=== PATIENT | male | born 1960 | race Caucasian/White ===

== ENCOUNTER 2023-05-18 12:52 | Emergency (ER) | payer SELFPAY ==
[2023-05-18 13:07] VITALS: BP 160/62; PULSE 75; RESP 18; TEMP 36.9; O2SAT 97
[2023-05-18 13:08] VITALS: BP 160/62; PULSE 75; RESP 18; TEMP 36.9; O2SAT 97
--- NOTE | 2023-05-18 13:19 | ED.LOWEXIN ---
HPI - Extremity Injury (Lower) General Chief Complaint: Extremity Problem,Nontraumatic Stated Complaint: lower extremity injury Time Seen by Provider: 05/18/23 12:59 Source: patient Mode of arrival: ambulatory Limitations: no limitations History of Present Illness HPI Narrative: 62-year-old male presents to [facility] with complaints of erythematous painful rash and mild swelling to his left lower leg since this morning. Patient denies injury to the area. Patient denies fever, body aches, chills, nausea, vomiting, diarrhea, chest pain, shortness of breath. Onset (ago): day(s) (1) Relieving factors: nothing Exacerbating factors: nothing Associated symptoms: swelling Other symptoms: none Related Data Home Medications Medication Instructions Recorded Confirmed esomeprazole magnesium 20 mg 20 mg PO DAILY 05/18/23 05/18/23 capsule,delayed release (Nexium) Allergies Allergy/AdvReac Type Severity Reaction Status Date / Time No Known Allergies Allergy Verified 05/18/23 13:08 Review of Systems Constitutional: Constitutional: Denies chills, Denies fatigue, Denies fever(s) and Denies weakness ENT: Denies dizziness, Denies epistaxis, Denies nasal congestion and Denies sore throat Cardiovascular: Cardiovascular: Denies chest pain and Denies rapid heart rate Respiratory: Respiratory: Denies cough and Denies wheezing Gastrointestinal: Gastrointestinal: Denies diarrhea, Denies nausea and Denies vomiting Musculoskeletal: Musculoskeletal: Reports arthralgias and Reports joint swelling Comments: Mild swelling noted to left lower leg Integumentary/Breasts: Skin/Breast: Reports rash Comments: Erythematous rash to left lower leg Neurologic: Denies dizziness, Denies syncope and Denies headache(s) PMFSH Social History Social History (Updated 05/18/23 @ 13:22 by Vera Cope APRN) Smoking status: Current every day smoker Comments At time of signature, I agree with nursing past medical, surgical, social and family history. There is no relevant family history pertinent to the presenting complaint. Exam Const: General: healthy appearing and no acute distress Nutritional Appearance: well nourished Orientation/consciousness: patient oriented x3 Limitations: no limitations Eyes: Conjunctivae: conjunctivae normal Resp: Effort & Inspection: normal respiratory effort and not labored Auscultation: clear to auscultation bilaterally, no crackles, no rales, no rhonchi and no wheezes Cardio: Rate: regular rate Rhythm: regular rhythm Heart sounds: no murmurs Skin: General skin exam: normal color Wounds: no wounds Other: Erythematous rash noted to anterior medial, lateral aspect of left lower leg. There is no rash noted posterior aspect of left lower leg. There is mild surrounding erythema and swelling noted to left lower leg. Neuro: General: patient oriented x3 Speech: normal speech Gait exam (Neuro): Normal gait present Extrem: Other: 1+ swelling noted to left lower leg. Pulses are within normal limits. There is mild athlete's foot noted to left toes. Cellulitis type rash noted to left lower leg with surrounding erythema noted Psych: Affect: normal affect Attitude: cooperative Course Course Level of Care: Express Care Visit Vital Signs Vital signs: Vital Signs Temperature 36.9 C 05/18/23 13:07 Pulse Rate 75 05/18/23 13:07 Respiratory Rate 18 05/18/23 13:07 Blood Pressure 160/62 H 05/18/23 13:07 Pulse Oximetry 97 05/18/23 13:07 Oxygen Delivery Room Air 05/18/23 13:07 Temperature 36.9 C 05/18/23 13:08 Pulse Rate 75 05/18/23 13:08 Respiratory Rate 18 05/18/23 13:08 Blood Pressure 160/62 H 05/18/23 13:08 Pulse Oximetry 97 05/18/23 13:08 Oxygen Delivery Room Air 05/18/23 13:08 MDM - Extremity Injury (Lower) MDM Narrative Medical decision making narrative: Patient refuses ER transfer at this time. Reports that he does not go
== END 2023-05-18 13:27 | disposition home or self-care (01) ==
PROVIDERS: Emergency Provider Nurse Practitioner Family
DX: L03.116 Cellulitis of left lower limb (principal); F17.200 Nicotine dependence, unspecified, uncomplicated
CPT/HCPCS: 99213; G0463